=== PATIENT | male | born 1970 ===

== ENCOUNTER 2018-05-31 05:18 | Inpatient (IN) | payer OTHER ==
[2018-05-31] VITALS (11 sets, daily range): BP systolic 123–147; BP diastolic 35–92
[~2018-05-31] VITALS: Ht 185.4 cm; Wt 108.9 kg
[2018-05-31] MEDS ORDERED: NKM (05:53)
[2018-05-31] MEDS ORDERED: Midazolam 2mg/2ml Inj ONE (06:38)
[2018-05-31] MEDS ORDERED: Sodium Chloride 10ml vial INJ ONE (06:38)
[2018-05-31] MEDS ORDERED: Lidocaine 1% MPF 10mg/ml 5ml ONE (06:38)
[2018-05-31] MEDS ORDERED: fentaNYL 100 mcg/2 mL IV ONE (06:38)
[2018-05-31] MEDS ORDERED: Propofol 200mg/20ml IV ONE ×3 (06:38→09:03)
[2018-05-31] MEDS ORDERED: Bacitracin 50000 Units Vial ONE (06:45)
[2018-05-31] MEDS ORDERED: Vancomycin 1gm inj IVPB ONE (06:45)
[2018-05-31] MEDS ORDERED: Thrombin 5000 units TOPIC ONE (06:45)
[2018-05-31] MEDS ORDERED: Gelfoam Size TOPIC ONE (06:45)
[2018-05-31] MEDS ORDERED: ceFAZolin sod 2 GM in D5W 110 ML IVPB SCH (07:00)
[2018-05-31] MEDS ORDERED: LR 1000ml ONE (07:00)
[2018-05-31] MEDS ORDERED: Glycopyrrolate 0.2mg/ml 1ml Vial ONE (07:00)
[2018-05-31] MEDS ORDERED: Zemuron 50mg/5ml Inj IV ONE ×2 (07:09→08:03)
--- NOTE | 2018-05-31 07:19 | Pre-Procedure Note/Attestation ---
Pre-Procedure Note/Attestation Complete Prior to Procedure Planned Procedure: not applicable Procedure Narrative: C67 artificial disc replacement Indications for Procedure Pre-Operative Diagnosis: C67 herniation Attestation I attest that I discussed the nature of the procedure; its benefits; risks and complications; and alternatives (and the risks and benefits of such alternatives ), prior to the procedure, with the patient (or the patient's legal guest services representative). I attest that, if there was a reasonable possibility of needing a blood transfusion, the patient (or the patient's legal guest services representative) was given the [facility] standardized written summary, pursuant to the [place] Blood Safety Act ([place] Health and Safety Code # 1645, as amended). I attest that I re-evaluated the patient just prior to the surgery and that there has been no change in the patient's H&P, except as documented below: Surjit Jorge MD May 31, 2018 07:19
--- NOTE | 2018-05-31 07:20 | Brief Operative Note ---
Immediate Post Operative Note Operative Note Chief Complaint: neck pain and radiculopathy Pre-op Diagnosis: C67 herniation Procedure: C67 artificial disc replacement Post-op Diagnosis: same as pre-op Findings: consistent w/pre-op dx studies Surgeon: Luisito Multimedia Author: Nancie Anesthesiologist: Nicholas Anesthesia: general Specimen: none Complications: none Condition: stable Fluids: IVF Estimated Blood Loss: minimal Drains: none Implant(s) used?: Yes - dalton c 5 Surjit Jorge MD May 31, 2018 07:20
[2018-05-31] MEDS ORDERED: LR 1000ml 1,000 ML IVLG SCH (08:25)
[2018-05-31] MEDS ORDERED: Midazolam 2mg/2ml Inj IVP PRN (08:30)
[2018-05-31] MEDS ORDERED: HYDROmorphone 1mg/ml Carpuject IVP PRN (08:30)
[2018-05-31] MEDS ORDERED: Meperidine 50mg/ml Inj(FOR RIGORS ONLY) IVP PRN (08:30)
[2018-05-31] MEDS ORDERED: DiphenhydrAMINE 50mg/ml Inj IVP PRN (08:30)
--- NOTE | 2018-05-31 08:32 | Anethesia Preoperative Eval ---
Anesthesia Pre-op PMH/ROS General Date of Evaluation: May 31, 2018 Time of Evaluation: 07:00 Anesthesiologist: Ric ASA Score: ASA 1 Mallampati Score Class I : Soft palate, uvula, fauces, pillars visible Class II: Soft palate, uvula, fauces visible Class III: Soft palate, base of uvula visible Class IV: Only hard plate visible Mallampati Classification: Class II Surgeon: Luisito Diagnosis: HNP Surgical Procedure: Disc replacement C6-7 Family History: no anesthesia problems Allergies: Coded Allergies: No Known Allergies (Verified Allergy, Mild, 09/01/08) Patient NPO?: Yes NPO Date: May 30, 2018 NPO Time: 2100 Past Medical History Cardiovascular: Denies: HTN, CAD, MO, valve dz, arrhythmia, other Pulmonary: Denies: asthma, COPD, NIKKI, other Gastrointestinal/Genitourinary: Denies: GERD, CRI, ESRD, other Neurologic/Psychiatric: Denies: dementia, CVA, depression/anxiety, TIA, other Endocrine: Denies: DM, hypothyroidism, steroids, other HEENT: Denies: cataract (L), cataract (R), glaucoma, NIKOLSKI (L), NIKOLSKI (R), other Hematology/Immune: Denies: anemia, DVT, bleeding disorder, other Musculoskeletal/Integumentary: Denies: OA, RA, DJD, DDD, edema, other PMH Narrative: Denies significant PMH PSxH Narrative: Thoracic and lumbar fusion. THR Anesthesia Pre-op Phys. Exam Physician Exam Last Vital Signs Date Time Temp Pulse Resp B/P (MAP) Pulse Ox O2 Delivery O2 Flow Rate FiO2 05/31/18 06:03 97.5 58 20 135/78 (97) 97 05/31/18 05:54 Room Air Constitutional: NAD Neurologic: CN 2-12 intact Cardiovascular: RRR, no M/R/G Gastrointestinal: S/NT/ND Airway Exam Mallampati Score: Class II MO: full ROM: full Teeth: intact Anesthesia Pre-op A/P Labs WNL Studies Pre-op Studies: EKG - NSR Risk Assessment & Plan Assessment: Healthy male for disc replacement C6-7 Plan: GETA, SedLine Status Change Before Surgery: No Pre-Antibiotics Drug: Ancef 2 grams Given Within 1 Hr of Incision: Yes Time Given: 07:30 Zhang Larios MD May 31, 2018 08:32
--- NOTE | 2018-05-31 08:33 | Immediate Post-Op Evaluation ---
Immediate Post-Op Evalulation Immediate Post-Op Evalulation Procedure: Disc replacement C6-7 Date of Evaluation: May 31, 2018 Nausea: No Vomiting: No Complications No complication Patient Status: awake, patent, extubated, none Hydration Status: adequate Drug: Ancef 2 grams Given Within 1 Hr of Incision: Yes Time Given: 07:30 Zhang Larios MD May 31, 2018 08:33
--- NOTE | 2018-05-31 09:51 | Immediate Post-Op Evaluation ---
Immediate Post-Op Evalulation Immediate Post-Op Evalulation Procedure: Disc replacement C6-7 Date of Evaluation: May 31, 2018 Time of Evaluation: 10:00 IV Fluids: 700 Estimated Blood Loss: 30 Blood Pressure Systolic: 140 Blood Pressure Diastolic: 84 Pulse Rate: 68 Respiratory Rate: 14 O2 Sat by Pulse Oximetry: 100 Temperature (Fahrenheit): 97.2 Pain Score (1-10): 0 Nausea: No Vomiting: No Complications No complication Patient Status: awake, patent, extubated, none Hydration Status: adequate Drug: Ancef 2 grams Given Within 1 Hr of Incision: Yes Time Given: 07:30 Zhang Larios MD May 31, 2018 09:51
[2018-05-31] MEDS: HYDROmorphone 1mg/ml Carpuject IVP PRN ×2 (11:47→15:58)
[2018-05-31] MEDS ORDERED: Metoclopramide 10mg/2ml Inj IVP PRN ×2 (12:00)
[2018-05-31] MEDS ORDERED: Norco 5mg/325mg tab ORAL PRN (12:00)
[2018-05-31] MEDS ORDERED: Milk of Magnesia 30ml Ud ORAL PRN (12:00)
[2018-05-31] MEDS ORDERED: HYDROcodone/Acetamin 7.5/325 tab ORAL PRN ×2 (12:00)
[2018-05-31] MEDS ORDERED: Morphine Sulfate 2mg/ml Inj IV PRN (12:00)
[2018-05-31] MEDS ORDERED: Morphine Sulfate 4mg/ml Inj (IV/IM USE ONLY) IV PRN ×2 (12:00)
[2018-05-31] MEDS ORDERED: Naloxone 0.4mg/ml Inj IVP PRN (12:00)
[2018-05-31] MEDS: Dexamethasone 4mg/ml vial IVP SCH ×3 (12:10→23:35)
[2018-05-31] MEDS ORDERED: NS w/KCl 20mEq 1,000 ML IV SCH (12:30)
[2018-05-31] MEDS ORDERED: Chloraseptic Spray 20mL Bottle ORAL PRN (13:00)
--- NOTE | 2018-05-31 13:14 | Diagnostic Imaging Report ---
Indication: Neck Pain Findings: 3 fluoroscopic views of the cervical spine were obtained. Intraoperative imaging showing discectomy and replacement at C6-7. IMPRESSION: Intraoperative imaging
[2018-05-31] MEDS: ceFAZolin sod 1 GM in D5W 55 ML IV SCH ×2 (15:02→23:35)
[2018-05-31] MEDS ORDERED: Tubing IV Secondary IV ONE (17:35)
[2018-05-31] MEDS ORDERED: Docusate 100mg cap ORAL SCH (18:00)
--- NOTE | 2018-05-31 21:00 | Operative Note - Dictated ---
DATE OF OPERATION: 05/31/2018 SURGEON: Surjit Jorge MD, Orthopaedic Spine Surgeon. CONTOUR PATH TAPE MILL OPERATOR: PREOPERATIVE DIAGNOSES: 1. Intractable neck pain. 2. Radiculopathy. 3. Herniation, C6-C7. 4. Neuroforaminal stenosis, C6-C7. 5. Stenosis. POSTOPERATIVE DIAGNOSES: 1. Intractable neck pain. 2. Radiculopathy. 3. Herniation, C6-C7. 4. Neuroforaminal stenosis, C6-C7. 5. Stenosis. PROCEDURE PERFORMED: 1. Anterior cervical diskectomy and artificial disc replacement of C6-C7 using a Synthes ProDisc C size 5 height. 2. Partial vertebrectomy of C6-C7. 3. Use of intraoperative microscope. 4. Motor-evoked potential monitoring. 5. Somatosensory-evoked potential monitoring. 6. Supervision and interpretation of fluoroscopy. COMPLICATIONS: None. ANESTHESIA: General. ESTIMATED BLOOD LOSS: Less than 100 mL. INDICATIONS FOR SURGERY: This patient is a 48-year-old male who has history of . As a result of this, Goldy sustained intractable neck pain, radiculopathy, herniation of C6-C7, neuroforaminal stenosis of C6-C7, and stenosis. We tried a course of conservative management, but despite this course, there was still a significant component of persistent, recalcitrant neck pain and arm pain. The MRI demonstrated significant neuroforaminal compromise secondary to disc herniations at C6-C7. We had a long discussion with Goldy regarding the risks and benefits of surgery. Our discussion included but was not limited to nonoperative management, chiropractic management, another epidural steroid injection as well as definitive management in the form of surgery. We recommended an anterior cervical diskectomy and artificial disc replacement of C6-C7 as final definitive management. We reviewed the risks and benefits of surgery with Goldy. Our discussion included a comprehensive review of the clinical issues and the nature of the clinical decision. We reviewed the alternatives, including doing nothing. Goldy elected to proceed accordingly with anterior cervical diskectomy and artificial disc replacement of C6-C7. We had a long discussion regarding the risks, alternatives, and benefits of surgery. Our description of the risks included a discussion in person as well as a signed consent which detailed all pertinent risks from the procedure itself. Briefly, our discussion included but was not limited to infection, bleeding, pseudarthrosis, spinal cord injury, neurovascular injury, dural tear, CSF leak, neuropathy, paralysis, permanent weakness/drop foot/drop arm, paresthesias, blindness, palsy, and weakness. The patient understood there may be a need for a revision surgery or additional procedures. Approach-related complications including dysphonia, dysphagia, blindness, permanent vocal cord and neural injury, hematoma, swallowing and breathing difficulty. Medical complications were reviewed including liver, kidney, shock, cardiopulmonary failure, anesthesia complications including , swelling, damage to the musculature, larynx/voice injury or loss, esophagus/throat, trachea, blood vessels and muscles/muscular sprain, and lungs/pneumothorax during this surgical procedure; injury to deeper structures may be temporary or permanent. After this review of risks, Goldy understood these and elected to proceed. A written and verbal consent was given. We discussed the pros and cons of all the alternatives. We discussed the uncertainties associated with the decision. Afterwards, I assessed Goldy' understanding and explored their preferences. All questions were answered and no guarantees were given. Medical clearance was obtained prior to surgery. INTRAOPERATIVE FINDINGS: A broad-based disc herniation which was found posterior to a tear/rent in the posterior longitudinal ligament at C6-C7 causing a considerable amount of neuroforaminal stenosis with significant encroachment on the neural foramina and spinal cord. Posterior to the PLL, there was a pair and underneath there were several fragments which I found compressing the left-sided neural foramina and elements therein. This was more significant than what I noticed on the MRI leading me to believe that more of the disk had herniated through this tear since then. DESCRIPTION OF PROCEDURE: Under the benefit of general endotracheal anesthesia and with the assistance of the entire operative team, the patient was moved from the [facility] onto the operative table in the supine position. The head was secured and carefully positioned appropriately. Bilateral arms were secured with GelPads and foam and all bony prominences were padded. For the bilateral lower extremities, SCD and SHUKRI hose were placed for DVT prophylaxis. A surgical timeout was called which corroborated our planned procedure of anterior cervical diskectomy and artificial disc replacement of C6-C7. Preoperative antibiotics were administered within 30 minutes of the incision for antibiotic prophylaxis. Using lateral fluoroscopic radiography, the operative levels were delineated. Next the wound was prepped and draped with chlorhexidine and sterile drapes. An incision was based on lateral fluoroscopy and we centered our incision at the C6-C7 interspace and next using a standard [place] anterior-based approach, the incision was taken down through the skin and subcutaneous tissues until the vertebral bodies and their corresponding disc spaces were visualized. A needle was placed into the interspace to confirm placement of the operative interspace and we performed the remainder of procedure under microscopic visualization. Next using bipolar and Bovie cautery to ensure meticulous hemostasis, the longus colli was mobilized bilaterally and retractors were placed deep to the longus colli bilaterally to address retraction. Next we turned our attention to the radical anterior diskectomy. This was initially performed at C6-C7 first by using a #15 blade scalpel followed by narrow pituitaries and a Microsect 5-B curette was used to denude the endplate of all cartilaginous tissue. Next using a [employer] AM8 drill bit, the partial vertebrectomy was performed in a [id number] and [id number]-[id number] fashion, and ultimately the posterior uncinate joints bilaterally and posterior osteophytic lips and margins causing central and lateral impingement were carefully denuded until visualization of the posterior longitudinal ligament was possible. An endplate preparation was performed in the exact same fashion. Using an intervertebral [facility] director, sequential distraction was obtained throughout the disk space. We saw a tear/rent in the PLL and this was carefully mobilized and dissected using a Microsect 1-B curette until we visualized a broad-based disk herniation with compression of the spinal cord as well as neural foramina which was left-sided. This neuroforaminal compression was carefully resected using a Kerrison-1 and Kerrison-2 rongeurs until complete decompression of the spinal cord was visualized and complete decompression of the neural foramina and nerve root therein as well as the axilla and lateral margin of the nerve root was visualized and subsequently completely decompressed. The family was notified at one-hour intervals throughout the procedure to provide for consistent updates. We next turned our attention towards trialing our implant within the disk space. We initially tried size 5 and the ProDisc Cervical spacer fit well in regard to depth and width. This implant was opened and prepared. Next under direct visualization, I confirmed excellent fit in respect to the anterior and posterior vertebral bodies, the uncinate joints, and in regard to toggle. Once satisfied with this placement on serial AP and lateral fluoroscopy, I turned my attention towards cutting our marcin. These were cut in the bones using a reciprocating drill and afterwards all free fragments of bone were irrigated. Next FloSeal was placed into the interspace and the implant was inserted using fluoroscopic guidance. Next the Synthes ProDisc C size 5 ADR was then carefully advanced and secured into the intervertebral space under direct visualization and with supervision of AP and lateral fluoroscopic views. After a finger sweep, we confirmed removal of all sponges. The retractor was removed and we next turned our attention to meticulous hemostasis with FloSeal and bipolar cautery. After the sponge and needle count was again found to be correct with our second count, we next turned our attention to closure. The wound was again copiously irrigated with antibiotic-impregnated saline. Closure consisted of 4-0 clear nylon for the platysma,and 6-0 clear nylon for the superficial skin. Final skin closure and dressings consisted of Dermabond. Prior to final closure, a final radiograph was obtained which demonstrated the hardware was intact with excellent position throughout. The patient tolerated the procedure well. The patient was carefully extubated after the conclusion of surgery. We discussed the findings of the surgery with the family upon completion of the case. At this point, the patient was transferred to the spine floor for further observation. Surjit Jorge M.D. DR: Rajinder JOB#: [id number] CC:
[2018-06-01] VITALS: BP 124/77
[2018-06-01 04:00] VITALS: BP 120/75
[2018-06-01] MEDS: Dexamethasone 4mg/ml vial IVP SCH (06:04)
[2018-06-01] MEDS: ceFAZolin sod 1 GM in D5W 55 ML IV SCH (06:46)
[2018-06-01 08:00] VITALS: BP 141/91
[2018-06-01 08:41] VITALS: BP 141/91
--- NOTE | 2018-06-01 08:41 | 48 Hour Post Anesthesia Eval ---
Post Anesthesia Evaluation Procedure: Disc replacement C6-7 Date of Evaluation: Jun 01, 2018 Time of Evaluation: 10:30 Blood Pressure Systolic: 141 0: 91 Pulse Rate: 66 Respiratory Rate: 20 Temperature (Fahrenheit): 98.1 O2 Sat by Pulse Oximetry: 95 Airway: patent Nausea: No Vomiting: No Pain Intensity: 3 Hydration Status: adequate Cardiopulmonary Status: Stable Mental Status/LOC: patient returned to baseline Follow-up Care/Observations: As per surgery Post-Anesthesia Complications: No anesthetic complication Follow-up care needed: N/A Zhang Larios MD Jun 01, 2018 08:41
--- NOTE | 2018-06-03 08:44 | Discharge Summary ---
Discharge Summary Hospital Course Date of Admission May 31, 2018 at 05:18 Date of Discharge Jun 01, 2018 at 09:00 Admitting Diagnosis C 6-7 herniation Reason for Hospitalization: elective surgery HPI Goldy Thornton is a 48 year old male who was admitted on May 31, 2018 at 05:18 for neck pain and radiculopathy. Patient was initially managed with conservative approach, but despite this course, there was still a significant component of persistent, recalcitrant neck pain and arm pain. MRI demonstrated significant neuroforaminal compromise secondary to disc herniations at C6-C7. After long discussion with surgeon, reviewing all alternative approaches, risks and benefits of surgery, Patient was opted for surgery. Patient was admitted for elective surgery Procedures s/p 05/31/[address] Jorge 1. Anterior cervical diskectomy and artificial disc replacement of C6-C7 using a Synthes ProDisc C size 5 height. 2. Partial vertebrectomy of C6-C7. 3. Use of intraoperative microscope. 4. Motor-evoked potential monitoring. 5. Somatosensory-evoked potential monitoring. 6. Supervision and interpretation of fluoroscopy. Hospital Course status post surgery course of recovery uneventful initially IV fluids s/p perioperative antibiotics neurovascular status closely monitored, stable incision clean dry and intact pain management addressed hemodynamically stable ambulated with PT fall precautions maintained; safe for ambulation slowly started on soft diet Chloraseptic spray and lozenges provided as needed able to tolerate diet , IV fluids discontinued antiemetics were on board as needed voided freely bowel regimen instituted patient was stable for discharge discharge instructions provided follow up with surgeon as outpatient as advised FINAL DIAGNOSES Intractable neck pain. Cervical radiculopathy. Cervical herniation, C6-C7. Neuroforaminal stenosis, C6-C7. Cervical stenosis. s/p Anterior cervical diskectomy and artificial disc replacement of C6-C7. Partial vertebrectomy of C6-C7. Discharge Condition Upon Discharge: stable Discharge Disposition Patient was discharged to Home () Discharge Instructions Discharge Instructions Special Instructions I have been assigned to complete a D/C Summary on this account. I was not involved in the patient management Ana Solis NP Jun 03, 2018 08:44
== END 2018-06-01 09:00 | disposition home or self-care (01) | DRG 518 ==
LOC: SDSOVERFLO 05:18 → 3E 11:00
PROC: 0RR30JZ Replacement of Cervical Vertebral Disc with Synthetic Substitute, Open Approach (ICD-10-PCS; principal; 2018-05-31 07:00)
DX: M48.02 Spinal stenosis, cervical region (principal); I10 Essential (primary) hypertension
CPT/HCPCS: 36415; 72040; 76001; 86850; 86900; 86901; 87081; 94003; 94150; J2250; J2405